=== PATIENT | male | born 1970 | race Caucasian/White ===

== ENCOUNTER 2024-06-09 10:05 | Day surgery (SDC) | payer OTHER ==
--- NOTE | 2024-03-31 10:53 | HP ---
HISTORY OF PRESENT ILLNESS: No prior colonoscopy. No bloody stools. No change in bowel habits. No new pain. Family history negative for colon cancer. PAST MEDICAL HISTORY: He has had some obesity. HOME MEDICATIONS: Adipex. ALLERGIES: No known drug allergies. PAST SURGICAL HISTORY: Umbilical hernia repair, had knee scope on the left and biceps tendon repair in the past. SOCIAL HISTORY: No smoking. Drinks 5 beers. FAMILY HISTORY: Lung cancer. REVIEW OF SYSTEMS: Twelve systems reviewed. No chest pain or palpitations. Other systems negative or noncontributory as above and per preadmission questionnaire. PHYSICAL EXAMINATION: GENERAL: Height 6 feet. BMI 33.55. No acute distress. HEENT: Sclerae nonicteric. Extraocular movements intact. NECK: No JVD. CHEST: Equal excursion, nonlabored breathing. CARDIOVASCULAR: Regular rate and rhythm. ABDOMEN: Soft. SKIN: Dry. EXTREMITIES: No cyanosis or edema. NEUROLOGIC: Alert and oriented. Moving extremities symmetrically. PSYCHIATRIC: Appropriate mood and affect. RECTAL: Referred until time of endoscopy exam. IMPRESSION: Patient needing screening colonoscopy. Shown the risk sheet, explained in detail to include bleeding; infection; risk of bowel injury or perforation; risk of missed or nondiagnosis or incomplete exam possibly requiring other procedures, barium enema or other procedure; risk of missed or nondiagnosis; possible need for other procedure or referral; risk of anesthesia and sedation; risk of bowel prep but not limited to. We will proceed with outpatient colonoscopy under MAC anesthesia. Otherwise, continue weight loss medication.
--- NOTE | 2024-06-09 08:52 | HP ---
HISTORY OF PRESENT ILLNESS: No prior colonoscopy. No bloody stools. No change in bowel movement. No new pain. Family history negative for colon cancer. Needs screening colonoscopy. PAST MEDICAL HISTORY: Obesity. HOME MEDICATIONS: Adipex. ALLERGIES: No known drug allergies. PAST SURGICAL HISTORY: He had hernia repair, ventral hernia repair in the past, had knee scope in the past, had biceps tendons in the past. SOCIAL HISTORY: No smoking. Does drink 5 beers a day. FAMILY HISTORY: Lung cancer. Negative for colon cancer. REVIEW OF SYSTEMS: Twelve systems reviewed. No chest pain or palpitations. Other systems negative or noncontributory as above and per preadmission questionnaire. PHYSICAL EXAMINATION: GENERAL: Height 6 feet. BMI 32.55. No acute distress. HEENT: Sclerae anicteric. NECK: No JVD. CHEST: Equal excursion, nonlabored breathing. CARDIOVASCULAR: Regular rate and rhythm. ABDOMEN: Soft. SKIN: Dry. EXTREMITIES: No cyanosis or edema. NEUROLOGIC: Alert, moving all extremities symmetrically. PSYCHIATRIC: Appropriate mood and affect. RECTAL: Deferred until time of exam. IMPRESSION: Needs screening colonoscopy. Feel he is a candidate. He was shown the risk sheet. Explained the procedure in detail but not limited to bleeding, infection, risk of bowel injury or perforation possibly requiring barium enema or swallow, risk of missed or nondiagnosis possible need for other procedure or referral, risk of anesthesia, sedation, risk of bowel prep, not limited to. Otherwise, we will proceed with outpatient colonoscopy under MAC anesthesia. Otherwise, continue weight loss medication.
[2024-06-09] MEDS ORDERED: Lactated Ringers 1,000 ML IV ONE (10:29)
[2024-06-09] MEDS: Lactated Ringers 1,000 ML IV SCH (10:30)
[2024-06-09] MEDS ORDERED: Versed 2 MG/2 ML Injection ONE (13:19)
[2024-06-09] MEDS ORDERED: propofoL IV ONE (13:19)
[2024-06-09 14:03] VITALS: TEMP 98.1
[2024-06-09 14:16] VITALS: BP 139/66; PULSE 82; RESP 20; O2SAT 97
--- NOTE | 2024-06-10 09:35 | OP ---
SURGERY DATE/TIME: 06/09/2023 [id number] PREOPERATIVE DIAGNOSIS: Needs screening colonoscopy. POSTOPERATIVE DIAGNOSIS: 1) Polyps. 2) Fair limited prep. 3) ASA class 2. 4) Withdrawal time approximately 12 minutes. PROCEDURE: 1) Colonoscopy to cecum. 2) Hot snare polypectomy transverse colon polyp 3) Hot biopsy polypectomy small early rectal polyp versus hyperplastic lesion. SURGEON: Finn Reeves MD ANESTHESIA: MAC. ESTIMATED BLOOD LOSS: Minimal. INDICATIONS: Consent obtained. DESCRIPTION OF PROCEDURE AND FINDINGS: Patient taken to endoscopy room. MAC anesthesia induced. After official time-out, no disagreement with planned procedure. Digital rectal exam did not reveal any rectal masses. Videocolonoscope was inserted and passed up through somewhat tortuous sigmoid, descending, transverse, ascending colon. With external pressure, scope passed around to the cecum. Appendiceal orifice was not well visualized. Prep overall was fair with semi-solid liquidy stool. This was suction irrigated as clear as possible. Limits exam for very small lesions. Scope was carefully withdrawn over the next 12 minutes. There was a 4 to 5 mm polyp in the transverse colon. It was removed with hot snare polypectomy. With the patient's belly breathing motion, this took some time but was able to be snared and the snare came through and then the specimen was grabbed with biopsy forceps and passed off. Good hemostasis noted. The scope carefully pulled back around to the rectum. Small early polyp versus hyperplastic lesion removed with hot biopsy forceps. Good hemostasis noted. There was no sign of any large polyps, masses, or obstructing lesions. The scope was withdrawn. Findings discussed with family out in the waiting area. We will see him back in the office in 1 or 2 weeks to go over the pathology results when available.
== END 2024-06-09 14:21 | disposition home or self-care (01) ==
LOC: SDC 10:05
PROVIDERS: ATTEND Surgery
DX: Z12.11 Encounter for screening for malignant neoplasm of colon (principal); D12.7 Benign neoplasm of rectosigmoid junction; D12.3 Benign neoplasm of transverse colon
CPT/HCPCS: J2250; J2704